=== PATIENT | male | born 1965 | race Caucasian/White ===

== ENCOUNTER 2019-10-28 04:29 | Inpatient (IN) ==
[2019-10-28] MEDS ORDERED: Morphine Sulfate 2 MG/ML SYRINGE ONE (04:32)
[2019-10-28] MEDS ORDERED: Ondansetron 4 MG/2 ML VIAL ONE (04:32)
[2019-10-28] MEDS ORDERED: Isovue-370 500 ML BOTTLE IVP ONE (04:33)
[2019-10-28] MEDS ORDERED: *HR* Heparin 5,000 UNIT/ML VIAL IVP ONE (04:40)
[2019-10-28] MEDS ORDERED: Aspirin 81 MG TAB.CHEW PO STA (04:41)
[2019-10-28] MEDS ORDERED: *HR* Ticagrelor 90 MG TABLET PO ONE (04:41)
[2019-10-28] MEDS ORDERED: 0.9 % Sodium Chloride 2,000 ML ONE ×2 (04:42→05:01)
[2019-10-28] MEDS ORDERED: Ondansetron 4 MG/2 ML VIAL IVP ONE (04:43)
[2019-10-28] MEDS ORDERED: Morphine Sulfate 2 MG/ML SYRINGE IVP ONE (04:43)
[2019-10-28] MEDS ORDERED: *HR* Heparin 5,000 UNIT/ML VIAL ONE (04:44)
[2019-10-28] MEDS ORDERED: 0.9 % Sodium Chloride 1,000 ML IVC SCH (04:45)
[2019-10-28] MEDS ORDERED: Amiodarone Premix 360 MG/200 ML BAG IVC ONE ×2 (04:52→04:57)
[2019-10-28 04:57] LABS: Basophils % 0.3 %; Eosinophils # 0.5 K/mcL (0.0-0.6); Eosinophils % 2.8 %; Hematocrit 48.1 % (37.5-50.1); Hemoglobin 15.4 g/dL (12.9-16.9); Immature Granulocytes % 0.3 % (0-4); Lymphocytes # 3.9 K/mcL (0.6-4.6); Lymphocytes % 24.6 %; Mean Corpuscular Hemoglobin 29.6 pg (28.0-33.3); Mean Corpuscular Volume 92.5 fL (83.0-100.0); Mean Platelet Volume 9.5 fL (9.4-12.4); Monocytes # 1.7 K/mcL (0.0-1.3); Monocytes % 10.6 %; Neutrophils # 9.8 K/mcL (1.6-8.9); Platelet Count 231 K/mcL (140-400); Red Cell Distribution Width 13.2 % (11.5-14.5); Segmented Neutrophils % 61.4 %; White Blood Count 15.9 K/mcL (4.3-11.1)
[2019-10-28] MEDS ORDERED: Amiodarone Premix 150 MG/100 ML BAG IVPB ONE (04:57)
[2019-10-28] MEDS ORDERED: *HR* FentaNYL (PF) 100 MCG/2 ML VIAL ONE (05:00)
[2019-10-28] MEDS ORDERED: *HR* Midazolam HCl 2 MG/2 ML VIAL ONE (05:00)
[2019-10-28 05:01] LABS: INR 1.1
[2019-10-28] MEDS ORDERED: ISOVUE-370 200 ML INFUS..BTL ONE (05:01)
[2019-10-28] MEDS ORDERED: Heparin 1,000 UNITS/500 mL 500 ML ONE ×2 (05:01→05:51)
[2019-10-28] MEDS ORDERED: *HR* Heparin 10,000 UNIT/10 ML VIAL ONE (05:01)
[2019-10-28] MEDS ORDERED: Nitroglycerin 1,000 MCG/10 ML VIAL IV ONE (05:01)
[2019-10-28 05:03] LABS: Activated Partial Thrombo Time 31.4 Seconds (26.0-36.0)
[2019-10-28 05:18] LABS: BUN/Creatinine Ratio 18 (6-26); Blood Urea Nitrogen 19 mg/dL (6-20); Calcium 9.6 mg/dL (8.6-10.3); Carbon Dioxide 24 mEq/L (23-29); Chloride 104 mEq/L (98-107); Glucose 146 mg/dL (70-105); Osmolality,Calculated 287 (280-300); Potassium 3.6 mEq/L (3.5-5.1); Sodium 136 mEq/L (136-145); eGFR For African Americans > 60 (> 60); eGFR For Non-African Americans > 60 (> 60)
[2019-10-28 05:24] LABS: Troponin I 0.19 ng/mL (< 0.04)
[2019-10-28] MEDS ORDERED: Furosemide 40 MG/4 ML VIAL ONE ×2 (05:34→06:28)
[2019-10-28] MEDS ORDERED: niCARdipine 20 MG/200 ML MLS IVC ONE (05:40)
[2019-10-28] MEDS ORDERED: D5% in Water 250 ML ONE (05:46)
[2019-10-28] MEDS ORDERED: *HR* Norepinephrine 4 MG/4 ML VIAL IVC ONE (05:46)
[2019-10-28 07:59] LABS: Estimated Average Glucose 114 mg/dl
[2019-10-28] MEDS ORDERED: carvediloL 6.25 MG TABLET PO SCH (08:00)
[2019-10-28] MEDS: Norepinephrine 4 MG in 0.9 % Sodium Chloride 250 ML IVC SCH (08:46)
[2019-10-28] MEDS ORDERED: lisinopriL 5 MG TABLET PO SCH (09:00)
[2019-10-28] MEDS ORDERED: Furosemide 40 MG/4 ML VIAL IVP SCH ×3 (09:00→20:00)
[2019-10-28] MEDS ORDERED: Perflutren Lipid Microsphere 1.3 ML in 0.9 % Sodium Chloride 8.7 ML IVP ONE (10:23)
[2019-10-28] MEDS ORDERED: *HR* Heparin 5,000 UNIT/ML VIAL IVP PRN ×2 (10:59)
[2019-10-28] MEDS ORDERED: Furosemide 40 MG/4 ML VIAL IVP ONE (11:17)
[2019-10-28 11:18] LABS: Hematocrit 48.1 % (37.5-50.1); Hemoglobin 15.7 g/dL (12.9-16.9); Mean Corpuscular HGB Conc 32.6 g/dL (31.6-35.5); Mean Corpuscular Hemoglobin 29.6 pg (28.0-33.3); Mean Corpuscular Volume 90.6 fL (83.0-100.0); Mean Platelet Volume 9.3 fL (9.4-12.4); Platelet Count 209 K/mcL (140-400); Red Blood Count 5.31 M/mcL (4.19-5.50); Red Cell Distribution Width 13.2 % (11.5-14.5); White Blood Count 26.8 K/mcL (4.3-11.1)
[2019-10-28 11:24] LABS: INR 1.1; Prothrombin Time 12.2 Seconds (9.4-12.1)
[2019-10-28 11:26] LABS: Activated Partial Thrombo Time 28.1 Seconds (26.0-36.0); Heparin anti-factor XA UFH < 0.04 IU/mL (0.30-0.70)
[2019-10-28] MEDS: Heparin 25,000 UNIT/250 ML D5W 25,000 UNIT/250 ML IV.SOLN IVC SCH (11:33)
[2019-10-28] MEDS ORDERED: *HR* Amiodarone 150 MG/3 ML VIAL IVPB ONE (14:30)
[2019-10-28 17:56] LABS: BUN/Creatinine Ratio 16 (6-26); Blood Urea Nitrogen 22 mg/dL (6-20); Calcium 8.7 mg/dL (8.6-10.3); Carbon Dioxide 28 mEq/L (23-29); Chloride 101 mEq/L (98-107); Glucose 141 mg/dL (70-105); Osmolality,Calculated 288 (280-300); Sodium 136 mEq/L (136-145); eGFR For African Americans > 60 (> 60); eGFR For Non-African Americans 55 (> 60)
[2019-10-28] MEDS: *HR* FentaNYL (PF) 100 MCG/2 ML VIAL IVP PRN (19:35)
[2019-10-28] MEDS: *HR* Ticagrelor 90 MG TABLET PO SCH (19:36)
[2019-10-29] MEDS: *HR* FentaNYL (PF) 100 MCG/2 ML VIAL IVP PRN ×3 (00:59→07:14)
[2019-10-29 03:39] LABS: Basophils % 0.1 %; Eosinophils % 0.1 %; Hematocrit 42.3 % (37.5-50.1); Immature Granulocytes % 0.4 % (0-4); Lymphocytes # 1.5 K/mcL (0.6-4.6); Lymphocytes % 7.2 %; Mean Corpuscular HGB Conc 33.1 g/dL (31.6-35.5); Mean Corpuscular Hemoglobin 29.7 pg (28.0-33.3); Mean Corpuscular Volume 89.6 fL (83.0-100.0); Mean Platelet Volume 9.6 fL (9.4-12.4); Monocytes # 1.9 K/mcL (0.0-1.3); Monocytes % 8.8 %; Neutrophils # 17.9 K/mcL (1.6-8.9); Platelet Count 141 K/mcL (140-400); Red Blood Count 4.72 M/mcL (4.19-5.50); Red Cell Distribution Width 13.2 % (11.5-14.5); Segmented Neutrophils % 83.4 %; White Blood Count 21.5 K/mcL (4.3-11.1)
[2019-10-29 03:56] LABS: BUN/Creatinine Ratio 19 (6-26); Blood Urea Nitrogen 25 mg/dL (6-20); Calcium 7.6 mg/dL (8.6-10.3); Carbon Dioxide 26 mEq/L (23-29); Chloride 103 mEq/L (98-107); Chol/HDL Ratio 3.5 (0-4.9); Cholesterol 120 mg/dL (< 200); Glucose 131 mg/dL (70-105); HDL Cholesterol 34 mg/dL (40-59); LDL Cholesterol,Calculated 70 mg/dL (0-99); Osmolality,Calculated 286 (280-300); Potassium 3.8 mEq/L (3.5-5.1); Sodium 135 mEq/L (136-145); Triglycerides 82 mg/dL (< 150); eGFR For African Americans > 60 (> 60); eGFR For Non-African Americans 58 (> 60)
[2019-10-29] MEDS: Norepinephrine 4 MG in 0.9 % Sodium Chloride 250 ML IVC SCH (07:02)
[2019-10-29] MEDS ORDERED: Furosemide 40 MG/4 ML VIAL IVP SCH (07:15)
[2019-10-29] MEDS: Aspirin 81 MG TAB.CHEW PO SCH (08:00)
[2019-10-29] MEDS: *HR* Ticagrelor 90 MG TABLET PO SCH ×2 (08:00→19:36)
[2019-10-29 09:05] LABS: Magnesium 1.3 mg/dL (1.6-2.6)
[2019-10-29] MEDS: Heparin 25,000 UNIT/250 ML D5W 25,000 UNIT/250 ML IV.SOLN IVC SCH (10:05)
[2019-10-29] MEDS ORDERED: Naloxone 0.4 MG/ML INJ IVP PRN (11:54)
[2019-10-29] MEDS ORDERED: Acetaminophen 325 MG TABLET PO PRN (11:54)
[2019-10-29] MEDS: *HR* HYDROcodone/Acet 5/325 mg TABLET PO PRN ×2 (12:09→19:36)
[2019-10-29 12:27] LABS: Adenovirus Not Detected (Not Detect); Bordetella Pertussis Not Detected (Not Detect); Chlamydophila pneumoniae Not Detected (Not Detect); Coronavirus 229E Not Detected (Not Detect); Coronavirus HKU1 Not Detected (Not Detect); Coronavirus NL63 Not Detected (Not Detect); Coronavirus OC43 Not Detected (Not Detect); Human Metapneumovirus Not Detected (Not Detect); Human Rhinovirus/Enterovirus Not Detected (Not Detect); Influenza A Subtype 2009 H1 Not Detected (Not Detect); Influenza B Not Detected (Not Detect); Mycoplasma pneumoniae Not Detected (Not Detect); Parainfluenza Virus 1 Not Detected (Not Detect); Parainfluenza Virus 2 Not Detected (Not Detect); Parainfluenza Virus 3 Not Detected (Not Detect); Parainfluenza Virus 4 Not Detected (Not Detect); Respiratory Syncytial Virus Not Detected (Not Detect)
[2019-10-29] MEDS: cefTRIAXone 1,000 MG in Water for inj. (sterile) 10 ML IVP SCH (13:00)
[2019-10-29] MEDS: *HR* OxyCODONE Immed Rel 5 MG TABLET PO PRN (16:00)
[2019-10-29] MEDS ORDERED: Furosemide 40 MG/4 ML VIAL ONE (17:19)
[2019-10-29] MEDS ORDERED: Furosemide 40 MG/4 ML VIAL IV ONE (17:23)
[2019-10-29] MEDS: Doxycycline 100 MG in 0.9 % Sodium Chloride Mini Bag 100 ML IVPB SCH (17:33)
[2019-10-29] MEDS ORDERED: Furosemide 40 MG in 0.9 % Sodium Chloride 50 ML IV SCH (20:00)
[2019-10-29] MEDS: Furosemide 40 MG/4 ML VIAL IVP SCH (23:30)
[2019-10-30] MEDS: *HR* OxyCODONE Immed Rel 5 MG TABLET PO PRN (02:00)
[2019-10-30 04:08] LABS: Basophils % 0.1 %; Hematocrit 38.1 % (37.5-50.1); Hemoglobin 12.6 g/dL (12.9-16.9); Immature Granulocytes % 0.5 % (0-4); Lymphocytes # 1.1 K/mcL (0.6-4.6); Lymphocytes % 5.3 %; Mean Corpuscular HGB Conc 33.1 g/dL (31.6-35.5); Mean Corpuscular Hemoglobin 29.5 pg (28.0-33.3); Mean Corpuscular Volume 89.2 fL (83.0-100.0); Mean Platelet Volume 10.3 fL (9.4-12.4); Monocytes % 9.3 %; Neutrophils # 18.1 K/mcL (1.6-8.9); Platelet Count 124 K/mcL (140-400); Red Blood Count 4.27 M/mcL (4.19-5.50); Red Cell Distribution Width 13.4 % (11.5-14.5); Segmented Neutrophils % 84.8 %; White Blood Count 21.4 K/mcL (4.3-11.1)
[2019-10-30 04:17] LABS: INR 1.4; Prothrombin Time 16.4 Seconds (9.4-12.1)
[2019-10-30 04:22] LABS: Activated Partial Thrombo Time 54.7 Seconds (26.0-36.0)
[2019-10-30 04:28] LABS: Calcium 8.1 mg/dL (8.6-10.3); Magnesium 1.9 mg/dL (1.6-2.6); Potassium 4.1 mEq/L (3.5-5.1)
[2019-10-30] MEDS: Doxycycline 100 MG in 0.9 % Sodium Chloride Mini Bag 100 ML IVPB SCH ×2 (06:05→17:10)
[2019-10-30] MEDS: Norepinephrine 4 MG in 0.9 % Sodium Chloride 250 ML IVC SCH (07:14)
[2019-10-30] MEDS: Furosemide 40 MG/4 ML VIAL IVP SCH (07:27)
[2019-10-30] MEDS: cefTRIAXone 1,000 MG in Water for inj. (sterile) 10 ML IVP SCH (08:01)
[2019-10-30] MEDS: Heparin 25,000 UNIT/250 ML D5W 25,000 UNIT/250 ML IV.SOLN IVC SCH ×2 (08:12→14:16)
[2019-10-30] MEDS: Aspirin 81 MG TAB.CHEW PO SCH (08:28)
[2019-10-30] MEDS: *HR* Ticagrelor 90 MG TABLET PO SCH ×2 (08:28→20:00)
[2019-10-30] MEDS ORDERED: *HR* Atropine Sulfate 1 MG/10 ML SYRINGE ONE (09:19)
[2019-10-30] MEDS ORDERED: 0.9 % Sodium Chloride 1,000 ML ONE (09:19)
[2019-10-30] MEDS ORDERED: Furosemide 240 MG in 0.9 % Sodium Chloride 96 ML IVC SCH ×2 (09:30→17:49)
[2019-10-30] MEDS ORDERED: Milrinone Lactate 10 MG/10 ML VIAL IVP ONE (10:43)
[2019-10-30] MEDS ORDERED: Milrinone Premix 20 MG/100 ML 20 MG/100 ML BAG IVC SCH ×2 (10:45→17:55)
[2019-10-30] MEDS ORDERED: *HR* Heparin 5,000 UNIT/ML VIAL IVP ONE (13:13)
[2019-10-30] MEDS ORDERED: *HR* Heparin 5,000 UNIT/ML VIAL IVP PRN ×2 (13:13)
[2019-10-30] MEDS ORDERED: *HR* Heparin 5,000 UNIT/ML VIAL SQ SCH (18:00)
[2019-10-30 20:34] LABS: BUN/Creatinine Ratio 27 (6-26); Blood Urea Nitrogen 35 mg/dL (6-20); Calcium 8.5 mg/dL (8.6-10.3); Carbon Dioxide 28 mEq/L (23-29); Chloride 91 mEq/L (98-107); Glucose 143 mg/dL (70-105); Magnesium 1.7 mg/dL (1.6-2.6); Osmolality,Calculated 280 (280-300); Potassium 3.2 mEq/L (3.5-5.1); Sodium 130 mEq/L (136-145); eGFR For African Americans > 60 (> 60); eGFR For Non-African Americans 57 (> 60)
[2019-10-31 02:49] LABS: Basophils % 0.1 %; Eosinophils % 0.2 %; Hematocrit 40.9 % (37.5-50.1); Immature Granulocytes % 0.5 % (0-4); Lymphocytes # 1.5 K/mcL (0.6-4.6); Lymphocytes % 7.8 %; Mean Corpuscular HGB Conc 34.2 g/dL (31.6-35.5); Mean Corpuscular Hemoglobin 29.4 pg (28.0-33.3); Mean Corpuscular Volume 85.9 fL (83.0-100.0); Monocytes # 1.8 K/mcL (0.0-1.3); Monocytes % 9.3 %; Neutrophils # 16.2 K/mcL (1.6-8.9); Platelet Count 141 K/mcL (140-400); Red Blood Count 4.76 M/mcL (4.19-5.50); Segmented Neutrophils % 82.1 %; White Blood Count 19.7 K/mcL (4.3-11.1)
[2019-10-31 02:53] LABS: VBG Ionized Calcium 0.95 mmol/L (1.15-1.35)
[2019-10-31 03:11] LABS: Alanine Aminotransferase 76 Units/L (7-52); Albumin 3.4 g/dL (3.5-5.7); Albumin/Globulin Ratio 0.8 (1.1-2.2); Alkaline Phosphatase 51 Units/L (34-104); Aspartate Amino Transferase 118 Units/L (13-39); BUN/Creatinine Ratio 30 (6-26); Bilirubin,Total 1.4 mg/dL (0.3-1.0); Blood Urea Nitrogen 39 mg/dL (6-20); Calcium 8.1 mg/dL (8.6-10.3); Carbon Dioxide 27 mEq/L (23-29); Chloride 94 mEq/L (98-107); Globulin 4.1 g/dL (2.4-3.5); Glucose 131 mg/dL (70-105); Magnesium 2.5 mg/dL (1.6-2.6); Osmolality,Calculated 275 (280-300); Phosphorous 3.8 mg/dL (2.7-4.5); Potassium 3.6 mEq/L (3.5-5.1); Sodium 127 mEq/L (136-145); Total Protein 7.5 g/dL (6.4-8.9); eGFR For African Americans > 60 (> 60); eGFR For Non-African Americans 58 (> 60)
[2019-10-31] MEDS: Calcium Gluconate 1gm/50mL 1 GM/50 ML BAG IVPB PRN ×3 (03:27→17:26)
[2019-10-31] MEDS: Doxycycline 100 MG in 0.9 % Sodium Chloride Mini Bag 100 ML IVPB SCH ×2 (05:29→17:25)
[2019-10-31] MEDS: Norepinephrine 4 MG in 0.9 % Sodium Chloride 250 ML IVC SCH (08:42)
[2019-10-31] MEDS: cefTRIAXone 1,000 MG in Water for inj. (sterile) 10 ML IVP SCH (08:43)
[2019-10-31] MEDS: Aspirin 81 MG TAB.CHEW PO SCH (08:44)
[2019-10-31] MEDS: *HR* Ticagrelor 90 MG TABLET PO SCH ×2 (08:44→21:25)
[2019-10-31 09:22] LABS: VBG Ionized Calcium 0.97 mmol/L (1.15-1.35)
[2019-10-31] MEDS ORDERED: Spironolactone 25 MG TABLET PO SCH (10:15)
[2019-10-31] MEDS: *HR* HYDROcodone/Acet 5/325 mg TABLET PO PRN (10:27)
[2019-10-31] MEDS ORDERED: IVABRADINE HCL 7.5 MG TABLET PO SCH (12:30)
[2019-10-31] MEDS ORDERED: *HR* Heparin 5,000 UNIT/ML VIAL IVP PRN ×2 (13:18)
[2019-10-31] MEDS ORDERED: Naloxone 0.4 MG/ML INJ IVP PRN (13:18)
[2019-10-31] MEDS ORDERED: Acetaminophen 325 MG TABLET PO PRN (13:18)
[2019-10-31] MEDS ORDERED: *HR* HYDROcodone/Acet 5/325 mg TABLET PO PRN (13:18)
[2019-10-31] MEDS ORDERED: *HR* OxyCODONE Immed Rel 5 MG TABLET PO PRN (13:18)
[2019-10-31] MEDS: Heparin 25,000 UNIT/250 ML D5W 25,000 UNIT/250 ML IV.SOLN IVC SCH (15:31)
[2019-10-31] MEDS ORDERED: Furosemide 40 MG/4 ML VIAL IVP SCH (16:00)
[2019-10-31 16:28] LABS: VBG Ionized Calcium 1.02 mmol/L (1.15-1.35)
[2019-10-31] MEDS: Furosemide 40 MG/4 ML VIAL IVP SCH (17:25)
[2019-10-31] MEDS ORDERED: Ondansetron 4 MG/2 ML VIAL IVP PRN (17:32)
[2019-10-31] MEDS: IVABRADINE HCL 7.5 MG TABLET PO SCH (21:39)
[2019-10-31 23:11] LABS: VBG Ionized Calcium 1.04 mmol/L (1.15-1.35)
[2019-11-01] MEDS: Calcium Gluconate 1gm/50mL 1 GM/50 ML BAG IVPB PRN (00:27)
[2019-11-01] MEDS: Furosemide 40 MG/4 ML VIAL IVP SCH ×2 (00:27→08:23)
[2019-11-01 05:21] LABS: Basophils % 0.1 %; Eosinophils # 0.2 K/mcL (0.0-0.6); Eosinophils % 1.2 %; Hematocrit 42.8 % (37.5-50.1); Hemoglobin 14.4 g/dL (12.9-16.9); Immature Granulocytes % 0.4 % (0-4); Lymphocytes # 1.3 K/mcL (0.6-4.6); Lymphocytes % 7.4 %; Mean Corpuscular HGB Conc 33.6 g/dL (31.6-35.5); Mean Corpuscular Hemoglobin 29.1 pg (28.0-33.3); Mean Corpuscular Volume 86.6 fL (83.0-100.0); Mean Platelet Volume 10.7 fL (9.4-12.4); Monocytes % 11.6 %; Neutrophils # 13.6 K/mcL (1.6-8.9); Platelet Count 196 K/mcL (140-400); Red Blood Count 4.94 M/mcL (4.19-5.50); Segmented Neutrophils % 79.3 %; White Blood Count 17.2 K/mcL (4.3-11.1)
[2019-11-01] MEDS: Doxycycline 100 MG in 0.9 % Sodium Chloride Mini Bag 100 ML IVPB SCH (05:38)
[2019-11-01 05:40] LABS: Alanine Aminotransferase 82 Units/L (7-52); Albumin 3.6 g/dL (3.5-5.7); Albumin/Globulin Ratio 0.9 (1.1-2.2); Alkaline Phosphatase 68 Units/L (34-104); Aspartate Amino Transferase 90 Units/L (13-39); BUN/Creatinine Ratio 34 (6-26); Bilirubin,Total 1.3 mg/dL (0.3-1.0); Blood Urea Nitrogen 46 mg/dL (6-20); Calcium 9.4 mg/dL (8.6-10.3); Carbon Dioxide 27 mEq/L (23-29); Chloride 93 mEq/L (98-107); Globulin 4.2 g/dL (2.4-3.5); Glucose 134 mg/dL (70-105); Osmolality,Calculated 284 (280-300); Potassium 4.2 mEq/L (3.5-5.1); Sodium 130 mEq/L (136-145); Total Protein 7.8 g/dL (6.4-8.9); eGFR For African Americans > 60 (> 60); eGFR For Non-African Americans 56 (> 60)
[2019-11-01] MEDS: Spironolactone 25 MG TABLET PO SCH (08:22)
[2019-11-01] MEDS: Aspirin 81 MG TAB.CHEW PO SCH (08:22)
[2019-11-01] MEDS: *HR* Ticagrelor 90 MG TABLET PO SCH ×2 (08:23→21:18)
[2019-11-01] MEDS: IVABRADINE HCL 7.5 MG TABLET PO SCH ×2 (08:40→22:55)
[2019-11-01] MEDS ORDERED: cefTRIAXone 1,000 MG in Water for inj. (sterile) 10 ML IVP SCH (09:00)
[2019-11-01 10:05] LABS: Magnesium 2.1 mg/dL (1.6-2.6)
[2019-11-01 10:16] LABS: Troponin I 29.15 ng/mL (< 0.04)
[2019-11-01] MEDS: Heparin 25,000 UNIT/250 ML D5W 25,000 UNIT/250 ML IV.SOLN IVC SCH (12:02)
[2019-11-01] MEDS: *HR* Heparin 5,000 UNIT/ML VIAL SQ SCH (17:31)
[2019-11-01] MEDS: Doxycycline 100 MG CAPSULE PO SCH (21:18)
[2019-11-01] MEDS: Cefdinir 300 MG CAPSULE PO SCH (21:19)
[2019-11-02 01:02] LABS: VBG Ionized Calcium 1.04 mmol/L (1.15-1.35)
[2019-11-02] MEDS: *HR* Heparin 5,000 UNIT/ML VIAL SQ SCH ×2 (06:29→16:26)
[2019-11-02] MEDS: Spironolactone 25 MG TABLET PO SCH (08:41)
[2019-11-02] MEDS: Furosemide 40 MG TABLET PO SCH ×2 (08:41→16:26)
[2019-11-02] MEDS: Doxycycline 100 MG CAPSULE PO SCH ×2 (08:41→20:32)
[2019-11-02] MEDS: Cefdinir 300 MG CAPSULE PO SCH ×2 (08:41→20:31)
[2019-11-02] MEDS: *HR* Ticagrelor 90 MG TABLET PO SCH ×2 (08:41→20:31)
[2019-11-02] MEDS: Aspirin 81 MG TAB.CHEW PO SCH (08:42)
[2019-11-02] MEDS: IVABRADINE HCL 7.5 MG TABLET PO SCH ×2 (10:05→20:46)
[2019-11-02] MEDS: Heparin 25,000 UNIT/250 ML D5W 25,000 UNIT/250 ML IV.SOLN IVC SCH (19:29)
[2019-11-03 02:36] LABS: Hematocrit 42.4 % (37.5-50.1); Hemoglobin 14.6 g/dL (12.9-16.9); Mean Corpuscular HGB Conc 34.4 g/dL (31.6-35.5); Mean Corpuscular Hemoglobin 30.1 pg (28.0-33.3); Mean Corpuscular Volume 87.4 fL (83.0-100.0); Mean Platelet Volume 10.4 fL (9.4-12.4); Platelet Count 253 K/mcL (140-400); Red Blood Count 4.85 M/mcL (4.19-5.50); Red Cell Distribution Width 12.7 % (11.5-14.5); White Blood Count 16.6 K/mcL (4.3-11.1)
[2019-11-03 02:57] LABS: BUN/Creatinine Ratio 33 (6-26); Blood Urea Nitrogen 39 mg/dL (6-20); Carbon Dioxide 27 mEq/L (23-29); Chloride 92 mEq/L (98-107); Glucose 136 mg/dL (70-105); Osmolality,Calculated 281 (280-300); Potassium 3.5 mEq/L (3.5-5.1); Sodium 130 mEq/L (136-145); eGFR For African Americans > 60 (> 60); eGFR For Non-African Americans > 60 (> 60)
[2019-11-03] MEDS: *HR* Heparin 5,000 UNIT/ML VIAL SQ SCH ×2 (05:39→16:04)
[2019-11-03] MEDS: Spironolactone 25 MG TABLET PO SCH (07:29)
[2019-11-03] MEDS: Doxycycline 100 MG CAPSULE PO SCH ×2 (07:29→20:39)
[2019-11-03] MEDS: Cefdinir 300 MG CAPSULE PO SCH ×2 (07:29→20:40)
[2019-11-03] MEDS: Aspirin 81 MG TAB.CHEW PO SCH (07:30)
[2019-11-03] MEDS: Furosemide 40 MG TABLET PO SCH ×2 (07:30→16:04)
[2019-11-03] MEDS: *HR* Ticagrelor 90 MG TABLET PO SCH ×2 (07:30→20:40)
[2019-11-04] MEDS: *HR* Heparin 5,000 UNIT/ML VIAL SQ SCH (05:45)
[2019-11-04 07:20] VITALS: BP 112/77
[2019-11-04] MEDS: Cefdinir 300 MG CAPSULE PO SCH (08:12)
[2019-11-04] MEDS: Doxycycline 100 MG CAPSULE PO SCH (08:13)
[2019-11-04] MEDS: *HR* Ticagrelor 90 MG TABLET PO SCH (08:13)
[2019-11-04] MEDS: Aspirin 81 MG TAB.CHEW PO SCH (08:13)
[2019-11-04] MEDS: Furosemide 40 MG TABLET PO SCH ×2 (08:13→16:21)
[2019-11-04] MEDS: Spironolactone 25 MG TABLET PO SCH (08:14)
== END 2019-11-04 17:11 | disposition left against medical advice (07) ==
LOC: EMEROOARM 04:29 → ICNU 05:12 → 2NNU 11-01 07:43 → 2NENU 11-01 20:52
PROVIDERS: ADMIT Internal Medicine; ATTEND Internal Medicine Cardiovascular Disease